=== PATIENT | female | born 1990 | race Hispanic/Latino ===

== ENCOUNTER 2025-02-10 10:49 | Inpatient (IN) | payer BC ==
[2025-02-10] MEDS: hydrALAZINE 20 MG/ML VIAL SLOW IVP PRN ×2 (12:00→14:15)
[2025-02-10] MEDS ORDERED: Oxytocin 30 units/NS 500 ML 500 ML IV SCH (12:00)
[2025-02-10] MEDS ORDERED: Ondansetron PF 4 MG/2 ML Vial IVP PRN (12:00)
[2025-02-10 12:11] LABS: Hematocrit 30.5 % (34.9-44.5); Hemoglobin 9.6 g/dL (12.0-15.5); Mean Corpuscular Hemoglobin 25.0 pg (27.0-33.0); Mean Corpuscular Volume 79.4 fL (81.6-98.3); Platelet Count 358 10x3/uL (150-450); Red Blood Cell (RBC) Count 3.84 10x6/uL (3.90-5.03); White Blood Cell (WBC) Count 6.40 10x3/uL (3.5-10.5)
[2025-02-10 12:20] VITALS: BMI 28.9
[2025-02-10 12:32] LABS: ALT (SGPT) 13 U/L (Less than 34); AST (SGOT) 16 U/L (11-34); Albumin 2.8 g/dL (3.1-4.5); Alkaline Phosphatase 123 U/L (40-110); Anion Gap 13 mmol/L (10-20); BUN (Urea Nitrogen) 8 mg/dL (7.0-18.7); Bilirubin, Total 0.5 mg/dL (0.3-1.2); Calc. Creatinine Clearance 178 mL/min (70-130); Calcium 8.2 mg/dL (7.8-10.44); Carbon Dioxide 19 mmol/L (22-29); Chloride 109 mmol/L (98-107); Globulin 3.5 g/dL (2.4-3.5); Glucose 81 mg/dL (70-105); Potassium 4.0 mmol/L (3.5-5.1); Sodium 137 mmol/L (136-145)
[2025-02-10 12:50] LABS: Syphilis Antibody Index 0.06 S/CO (<1.00 Non-Reactive)
[2025-02-10 12:52] LABS: HIV (1/2) Antibody/Antigen Non-Reactive (NonReactive); HIV 1/2 INDEX 0.12 S/CO (<1.00); Hep B Surf Ag - L&D Non-Reactive S/CO (NonReactive)
[2025-02-10] MEDS: Oxytocin 30 units/NS 500 ML 500 ML IV SCH (20:25)
[2025-02-11] MEDS: Lidocaine 1% (PF) 30 ML VIAL SC PRN (00:10)
[2025-02-11] MEDS ORDERED: Bisacodyl 10 MG SUPP PR PRN (00:32)
[2025-02-11] MEDS ORDERED: HYDROcodone/Acetaminophen 5/325 mg Tablet PO PRN (00:32)
[2025-02-11] MEDS ORDERED: Milk Of Magnesia 30 ML UDCUP PO PRN (00:32)
[2025-02-11] MEDS ORDERED: Ondansetron PF 4 MG/2 ML Vial IVP PRN (00:32)
[2025-02-11 00:37] LABS: Analyzer IN Cardio CS NICU; Critical Notified By: CP.PH; Critical Notified Whom: NUR.SCI5; RapidComm Collect By CBN; pH (Cord, venous) 7.161 (7.250-7.350)
[2025-02-11 00:40] LABS: Analyzer IN Cardio CS NICU; Critical Notified By: CP.PH; Critical Notified Whom: NUR.SCI5; RapidComm Collect By CBN
[2025-02-11] MEDS ORDERED: Oxytocin 30 units/NS 500 ML 500 ML IV SCH (00:45)
[2025-02-11] MEDS ORDERED: hydrALAZINE 20 MG/ML VIAL SLOW IVP PRN (00:52)
[2025-02-11] MEDS: NIFEdipine XL 30 MG ER.TAB PO SCH (01:26)
[2025-02-11] MEDS: Ibuprofen 800 MG TAB PO SCH (01:26)
[2025-02-11] MEDS: hydrALAZINE 20 MG/ML VIAL ONE (02:51)
[2025-02-11] MEDS: Boostrix 0.5 ML (Tdap) VIAL (>/=7 yrs of age) IM ONE (09:01)
[2025-02-12] MEDS: NIFEdipine XL 30 MG ER.TAB PO SCH (09:14)
[2025-02-13 11:01] VITALS: BP 106/63; TEMP 98.1
== END 2025-02-13 14:20 | disposition home or self-care (01) | DRG 807 ==
LOC: CSHLD 10:49 → CSHPP 02-11 02:10
PROVIDERS: ADMIT Obstetrics & Gynecology; ATTEND Obstetrics & Gynecology
PROC: 10E0XZZ Delivery of Products of Conception, External Approach (ICD-10-PCS; principal; 2025-02-10)
PROC: 4A1HXCZ Monitoring of Products of Conception, Cardiac Rate, External Approach (ICD-10-PCS; 2025-02-10)
PROC: 0HQ9XZZ Repair Perineum Skin, External Approach (ICD-10-PCS; 2025-02-10)
DX: O14.04 Mild to moderate pre-eclampsia, complicating childbirth (principal); Z37.0 Single live birth; O24.420 Gestational diabetes mellitus in childbirth, diet controlled; O69.82X0 Labor and delivery complicated by other cord entanglement, without compression, not applicable or unspecified; O70.0 First degree perineal laceration during delivery; Z3A.36 36 weeks gestation of pregnancy
CPT/HCPCS: 36415; 80053; 82805; 82951; 85027; 86780; 86850; 86900; 86901; 87340; 87389; 88307; 90715; J0360; J2590